=== PATIENT | female | born 1985 | race Caucasian/White ===

== ENCOUNTER → 2016-04-10 | Outpatient (CLI) | payer OTHER ==
[~2016-04-10] MED LIST: ACETAMINOPHEN650 M1 PO; ALBUTEROL17 G1 IH; ALBUTEROL17 GM INH; AMITRIPTYLINE H50 MG PO; AMITRYPTYLINE PO; AMOXICILLIN PO; AMOXICILLIN500 M1 PO; ANAPROX DS550 M1 PO; BACTRIM DS TABL1 TA1 PO; CODEINE; DITROPAN PO; DITROPAN5 MG PO; GABAPENTIN300 M2 PO; GABAPENTIN800 MG PO; KEFLEX250 M1 PO; LEXAPRO PO; LEXAPRO5 MG PO; NAPROSYN500 MG PO; NEURONTIN800 MG PO; NO MEDICATIONS; POLYMYXIN B; PREDNISONE5 M1 PO; RISPERDAL2 MG PO; RISPERIDONE PO; TECFIDERA240 MG PO; TRIMETHOPRIM; TYLENOL; TYSABRI; VICODIN 5/1 TAB 5/50 PO; ZITHROMAX1 G/PKT PO
--- NOTE | ~2016-04-10 | MR31 ---
[facility] A Service of [facility] RADIOLOGY TEXT RESULTS PATIENT: MADELEINEMAY Conchita LOCATION: [facility] : 81 UNIT #: [id number] AGE: [address]: Jacob Menchaca II, MD SEX: F ORDER DR: [id number] [place] [id number] O MR#: [id number] Acc #: [id number] NAME: REECE SALVADOR : 1985 SEX: F STUDY DATE/TIME: 04/10/2016 11:03 UNIT: [facility] ROOM: STUDY DESCRIPTION: MR Cervical WWo Contrast Attending Physician: Jacob Menchaca II., M.D. Referring Physician: Jacob Menchaca II., M.D. Ordering Physician: Jacob Menchaca II., M.D. Primary Care Physician: Su Melgar M.D. MRI CENTER REPORT This report is preliminary unless electronic signature is present. EXAM Cervical spine MRI with and without HISTORY Follow up known multiple sclerosis. No new complaints. On Tysabri. COMMENT MRI of the cervical spine was performed prior to and following intravenous administration of 20 mL of MultiHance. Comparison study is from 07/03/2015. Sagittal alignment is normal. Bone marrow signal intensity is normal. No Chiari I malformation. There is again extensive signal abnormality in the cervical cord consistent with the known multiple sclerosis diagnosis. Involvement is seen essentially at all levels. Allowing for imaging technique differences, the changes appear stable. No pathologic cord enhancement. No imaging evidence for active demyelination. No evidence for cervical canal stenosis. No foraminal compromise. IMPRESSION 1. Redemonstration of extensive signal abnormality in the cord consistent with the known clinical diagnosis of multiple sclerosis. On comparison to the study from 07/03/2015, the appearance is relatively stable. No imaging evidence for active demyelination. No evidence for cervical canal stenosis. Dictated by... Mary Stewart M.D. THIS IS AN ELECTRONICALLY VERIFIED REPORT [facility] A Service [facility] RADIOLOGY TEXT RESULTS PATIENT: REECE SALVADOR R LOCATION: [facility] : 83 UNIT #: [id number] AGE: [address]: Jacob Menchaca II, MD SEX: F ORDER DR: Mary Stewart M.D. at 04/11/2016 7:43 AM SALUD/psc TD: 04/10/2016 22:03 JOB #: [id number] MRI CENTER REPORT
--- NOTE | ~2016-04-10 | MR17 ---
[facility] A Service of [facility] RADIOLOGY TEXT RESULTS PATIENT: MADELEINEMAY Conchita LOCATION: [facility] : 83 UNIT #: [id number] AGE: [address]: Jacob Menchaca II, MD SEX: F ORDER DR: [id number] [address] [address] [id number] O MR#: [id number] Acc #: [id number] NAME: MADELEINE MAY : 1985 SEX: F STUDY DATE/TIME: 04/10/2016 10:32 UNIT: [facility] ROOM: STUDY DESCRIPTION: MR Brain WWo Contrast Attending Physician: Jacob Menchaca II., M.D. Referring Physician: Jacob Menchaca II., M.D. Ordering Physician: Jacob Menchaca II., M.D. Primary Care Physician: Su Melgar M.D. MRI CENTER REPORT This report is preliminary unless electronic signature is present. EXAM MRI of the brain with/without HISTORY Multiple sclerosis followup, history of known multiple sclerosis diagnosed in November 2013, patient on Tysabri now. No new complaints. No history of cancer. COMMENT MRI of the brain was performed prior to and following intravenous administration 20 mL of MultiHance. 1.5T wide-bore imaging system utilized. The comparison study is from 07/03/2015. Redemonstrated is extensive white matter disease consistent with the known diagnosis of multiple sclerosis. White matter disease burden is again severe. It is most confluent in the deep to periventricular white matter. There is no MRI evidence for intracranial hemorrhage. There is no extraaxial fluid collection. Supratentorial disease predominates. There is still some disease within the posterior fossa, best appreciated centered at the left middle cerebellar peduncle. The major intracranial flow voids are maintained. There is some fluid or inflammatory change in the mastoid tips bilaterally, not changed. The paranasal sinuses are clear. There are extensive areas of "black hole formation" most confluent in the deep to periventricular white matter. There is T2 shine-through on the diffusion series. Following contrast administration, there is no pathologic intracranial enhancement. No imaging evidence for active demyelination. No definitely new lesions are seen. There is volume loss again identified for age group, but this is not appreciably changed. IMPRESSION 1. Redemonstration of findings consistent with the severe involvement with the patient's known multiple sclerosis. On comparison to the study from 07/03/2015, the appearance is stable. [facility] A Service of [facility] RADIOLOGY TEXT RESULTS PATIENT: MADELEINEMay LOCATION: [facility] : 83 UNIT #: [id number] AGE: [address]: Jacob Menchaca II, MD SEX: F ORDER DR: No definitely new lesions are seen. There is no imaging evidence for active demyelination. Dictated by... Mary Stewart M.D. THIS IS AN ELECTRONICALLY VERIFIED REPORT Mary Stewart M.D. at 04/11/2016 7:43 AM SALUD/galen TD: 04/10/2016 21:50 JOB #: [id number] MRI CENTER REPORT
== END | disposition home or self-care (01) ==
LOC: SMRI 10:09
DX: G35 Multiple sclerosis (principal); R51 Headache
CPT/HCPCS: 70553; 72156; A9581

== ENCOUNTER → 2016-04-16 | Outpatient (CLI) | payer OTHER | END | disposition home or self-care (01) | LOC: CSSDAY 09:39 | DX: G35 Multiple sclerosis (principal); Z79.899 Other long term (current) drug therapy | CPT/HCPCS: 96413; J2323 ==

== ENCOUNTER 2016-04-28 07:29 | Inpatient (IN) | payer OTHER ==
--- NOTE | ~2016-04-28 | DS ---
Unit #: [id number] #: [id number] Patient: LYNDA TREVIZO [id number] [address] [place], [place] [address] [id number] I MR#: [id number] NAME: LYNDA TREVIZO ROOM: 242 Age: 30 Sex: F Admission Date: 04/28/2016 : 1985 Discharge Date: 04/29/2016 Attending Physician: Lissette Sullivan M.D. Primary Care Physician: Su Melgar M.D. DISCHARGE SUMMARY FINAL DIAGNOSES 1. Multiple sclerosis symptom exacerbation. 2. Urinary tract infection. 3. History of depression. 4. Tobacco abuse. DISCHARGE MEDICATIONS Bactrim DS one tablet p.o. b.i.d., and continue home medications. HOSPITAL COURSE Ms. Lynda Trevizo is a 30-year-old female, who has a history of MS. She was doing well about 2 days ago prior to coming to the hospital when she started having dysuria and polyuria. She knew that she was getting a bladder infection, but she did not follow up with primary care provider, and the third day, on Thursday morning, she could not ambulate. This is what has happened to her in the past also. She gets the exacerbation of her multiple sclerosis symptoms and she knew that she had to come to the hospital. She came to the hospital, was given Rocephin, and right away she started to move her legs. Today, she is doing much better at this time and according to her, she is able to ambulate and would like to go home as she has a to attend. I do not have the final culture results. The patient does have urine culture positive for E coli, more than 100,000 colonies, but sensitivity is not back. She has received 2 days of Rocephin. I am going to give her a prescription for Bactrim and she needs to call Dr. Melgar's office to get the urine culture report and make sure Bactrim is sensitive. She does verbalize understanding of above. DIAGNOSTIC STUDIES LABORATORY RESULTS: Blood cultures are negative. Sodium 135, potassium 4.2, chloride 105, BUN 10, and creatinine 0.7. WBC is 11.8, hemoglobin 11.9, hematocrit 37.0 and platelet count of 167. On admission, the patient's WBC count was 19.5. PHYSICAL EXAMINATION VITAL SIGNS: Blood pressure 108/59, respiratory rate 18, pulse is 73, temperature 97.8. CHEST: Fair air entry. No additional sounds. CVS: Regular rhythm. ABDOMEN: Soft. DISCHARGE INSTRUCTIONS The patient is being discharged home in stable condition. Follow up with Dr. Melgar in [address] Melgar's office in 24 hours to get the final Unit #: [id number] #: [id number] Patient: TREVIZO urine culture report. Dictated by... Noah Murphy/lauren TD: 04/30/2016 06:28 JOB #: [id number] DISCHARGE SUMMARY Page 1 of 1 X Lissette Sullivan MD X DISCHARGE SUMMARY
--- NOTE | ~2016-04-28 | HP ---
Unit #: [id number] #: [id number] Patient: REECE SALVADOR [id number] [address] [place], [place] [address] [id number] I MR#: [id number] NAME: REECE SALVADOR. ROOM: 242 Age: 30 Sex: F Admission Date: 04/28/2016 : 1985 Attending Physician: Lissette Sullivan M.D. Primary Care Physician: Su Melgar M.D. HISTORY AND PHYSICAL CHIEF COMPLAINT Unable to move her legs and dysuria. HISTORY OF PRESENT ILLNESS A 30-year-old female with past history of multiple sclerosis, was doing well until two days ago when started having some dysuria and polyuria and she thought she could have UTI but she did not go to a primary care provider. This morning she woke up and she could not move her lower extremities. The patient has history of multiple sclerosis and she follows up with Dr. Menchaca and is on infusion therapy once a month. She knew at that time that most likely this MS exacerbation is secondary to UTI. She came to ER and patient was found to have urinary tract infection with urine showing 4+ bacteria. The patient had the same kind of symptoms in 2014 and was treated with antibiotics. She does not complain of nausea and vomiting. She does not complain of chest pain or abdominal pain. According to her, she is already feeling better and she is able to move her legs somewhat. PAST MEDICAL HISTORY 1. Multiple sclerosis. 2. Depression. 3. UTI in the past. HOME MEDICATIONS 1. Ditropan 5 mg three times a day. 2. Risperdal 2 mg daily. 3. Amitriptyline 50 mg at bedtime. 4. Neurontin 800 mg three times a day. 5. Lexapro 10 mg daily. 6. IV Tecfidera infusion as per Dr. Menchaca. PAST SURGICAL HISTORY History of x2. SOCIAL HISTORY She is a smoker, smokes one pack per day. No history of alcohol abuse or drug abuse. ALLERGIES No known drug allergies. FAMILY HISTORY Unremarkable. Unit #: [id number] #: [id number] Patient: REECE SALVADOR REVIEW OF SYSTEMS As per history of presenting illness. A 12-point review of systems was done. PHYSICAL EXAMINATION GENERAL: The patient is lying comfortably in bed in no respiratory distress. VITAL SIGNS: Blood pressure is 109/68, respiratory rate 27, pulse 93, temperature 98.7, oxygen saturation is 99%. HEENT: Head is normocephalic. Eye movements are normal. NECK: Supple. CHEST: Fair air entry. No additional sounds. CARDIOVASCULAR: S1, S2 positive. Regular rhythm. ABDOMEN: Soft and benign. EXTREMITIES: Negative edema. Pulses are palpable. Toes are upgoing bilaterally. Normal bulk and tone. CENTRAL NERVOUS SYSTEM: Awake, alert, oriented x3. No focal neurological deficit. DIAGNOSTIC STUDIES LABORATORY: WBC 19.5, hemoglobin 13.4, hematocrit 41.3, platelet count 193,000. Sodium 138, potassium 4, chloride 104, BUN 12, creatinine 0.8. Urinalysis again shows 4+ bacteria. Troponin is less than 0.05. ASSESSMENT The patient is being admitted to med/surg unit with: 1. Urinary tract infection. 2. Exacerbation of multiple sclerosis symptoms. 3. History of depression. 4. Tobacco abuse. PLAN Admit to med/surg. IV Rocephin is being started. Urine culture is being done. Normal saline at 75 mL an hour is being started. Home medications have been adjusted. Plan of care has been discussed with patient. She does verbalize understanding. Dictated by Noah Murphy TD: 04/28/2016 16:45 JOB #: [id number] HISTORY AND PHYSICAL X Lissette Sullivan MD X HISTORY AND PHYSICAL
--- NOTE | ~2016-04-28 | CR72 ---
[facility] A Service of [facility] RADIOLOGY TEXT RESULTS PATIENT: REECE SALVADOR LOCATION: [place] [address] : [birth year] UNIT #: [id number] AGE: [address]: Lissette Sullivan MD SEX: F ORDER DR: [id number] [facility] [address] [facility]. [place], [place] [address] [id number] I MR#: [id number] Acc #: [id number] NAME: REECE SALVADOR. : 1985 SEX: F STUDY DATE/TIME: 04/28/2016 6:52 UNIT: [facility] ROOM: 34447 STUDY DESCRIPTION: CR Chest Single View Portable Attending Physician: Lissette Sullivan M.D. Ordering Physician: Kendrick Ernst M.D. Primary Care Physician: Su Melgar M.D. MEDICAL IMAGING REPORT This report is preliminary unless electronic signature is present EXAM Frontal chest 04/28/2016 INDICATION 30-year-old female with the history of weakness, shortness of air that began this morning. Short of breath, tobacco abuse. TECHNIQUE AND COMPARISON Frontal chest compared with 10/06/2014. FINDINGS Cardiac silhouette is within normal limits for technique. The vascularity is normal. Lungs are clear. No effusion or pneumothorax. IMPRESSION 1. Low-volume image, otherwise, negative frontal chest. No change. Dictated by... Casey Hernandez M.D. THIS IS AN ELECTRONICALLY VERIFIED REPORT Casey Hernandez M.D. at 04/28/2016 2:31 PM MATTHEW/kristopher TD: 04/28/2016 12:48 JOB #: [id number] MEDICAL IMAGING REPORT COPY
--- NOTE | ~2016-04-28 | EKG ---
PATIENT: MADELEINE MAY UNIT #: [id number] Ventricular Rate: 93 BPM Atrial Rate: 93 BPM P-R Interval: 160 ms QRS Duration: 100 ms Q-T Interval: 338 ms QTC Calculation(Bezet): 420 ms P [place]: 54 degrees Calculated R [place]: 31 degrees Calculated T [place]: 47 degrees Diagnosis Line: Normal sinus rhythm Diagnosis Line: Normal ECG Diagnosis Line: No previous ECGs available Diagnosis Line: Confirmed by TON IVORY MD ([id number]) on Diagnosis Line: 04/29/2016 2:21:10 PM INTERPRETING MD: CACHORRO SON
--- NOTE | ~2016-04-28 | BMI ---
[facility] Nutrition Therapy DATE: 04/29/16 Patient: REECE SALVADOR Physician: KIP Address: [address] [place] [address] Room/Bed: [address] [place] [address], Zip: [place] [address] Admit Date: 04/28/16 Date of : [birth year] Height: 5 8 Weight: 275 124.73 HIGH BMI NOTE: DX: 30 y/o female admitted with decreased range of motion ANTHROPOMETRICS: Ht: 68", Wt: 124.7 kg, BMI: 41 (Stage III obese) DIET: Healthy heart INTERVENTION: Restricted diet, meds/fluids per MD RECOMMENDATIONS: Continue healthy heart diet to promote a gradual weight loss towards a healthy BMI range. Respectfully, Caterina Sher RD, LD Food and Nutritional Services [facility] cc: client file
[2016-04-28 07:03] LABS: POC - CKMB <1.0 ng/mL (0.0-7.9); POC - TROPONIN <0.05 ng/mL (<=0.05)
[~2016-04-28 07:29] MED LIST changes: -AMITRYPTYLINE PO; -DITROPAN5 MG PO; -LEXAPRO5 MG PO; -NEURONTIN800 MG PO; -TYSABRI
[2016-04-28 07:36] LABS: URINE APPEARANCE CLOUDY; URINE BILIRUBIN NEG (NEG); URINE BLOOD NEG (NEG); URINE COLOR DK YELLOW; URINE GLUCOSE NEG (NEG); URINE KETONE TRACE (NEG); URINE LEUKOCYTE ESTERASE 3+ (NEG); URINE NITRATE POS (NEG); URINE PH 6.5 (5-8); URINE PROTEIN TRACE (NEG); URINE SPECIFIC GRAVITY 1.033 (1.003-1.035)
[2016-04-28 07:38] LABS: CULTURE INDICATED? YES; URINE BACTERIA AUWI 4+ (NEGATIVE); URINE SQUAMOUS EPITHELIAL CELL NONE SEEN /[HPF]; UWBCS1 AUWI INNUM (0-5)
[2016-04-28 07:44] LABS: BASOPHIL# 0.1 X10e3 (0-0.3); BASOPHIL% 0.8 % (0-2.5); EOSINOPHIL# 2.3 X10e3 (0-0.7); EOSINOPHIL% 11.7 % (0.0-7.0); HEMATOCRIT 41.3 % (35.0-45.0); HEMOGLOBIN 13.4 gm/dL (12.0-16.0); LYMPHOCYTE# 2.6 X10e3 (1.0-3.5); LYMPHOCYTE% 13.3 % (17.0-45.0); MEAN CELL VOLUME 89.2 FL (83-96); MEAN CORPUSCULAR HGB CONC 32.5 g/dL (30-36); MEAN PLATELET VOLUME 8.3 FL (6.5-11.5); MONOCYTE# 1.1 X10e3 (0-1.0); MONOCYTE% 5.8 % (3.0-12.0); NEUTROPHIL# 13.3 X10e3 (1.5-7.1); NEUTROPHIL% 68.4 % (40-75); PLATELET COUNT 193 X10e3 (140-420); RED BLOOD COUNT 4.63 X10e (3.90-5.30); RED CELL DISTRIBUTION WIDTH 15.7 % (11.0-15.5); WHITE BLOOD COUNT 19.5 X10e3 (4.0-10.5)
[2016-04-28 07:45] LABS: DIFF IND YES
[2016-04-28 07:47] LABS: U HYALINE CASTS AUWI 0-2 /[LPF]; URINE MUCUS PRESENT; URINE SOURCE CATH
[2016-04-28 07:58] LABS: ALBUMIN SERUM 3.7 g/dL (3.5-5.0); ALKALINE PHOSPHATASE 124 U/L (32-92); ALT (SGPT) 14 U/L (10-40); AST (SGOT) 16 U/L (10-42); BILIRUBIN, DIRECT 0.1 mg/dL (0.0-0.2); BILIRUBIN,INDIRECT 0.4 mg/dL (0.0-0.9); BILIRUBIN,TOTAL 0.5 mg/dL (0.2-2.0); BLOOD UREA NITROGEN 12 mg/dL (9-23); CALCIUM SERUM 8.8 mg/dL (8.4-10.2); CARBON DIOXIDE 26 mmol/L (22-31); CHLORIDE 104 mmol/L (100-111); CREATININE SERUM 0.8 mg/dL (0.6-1.4); GLOM FILT RATE Estimated ABOVE60 mL/min (>60); GLUCOSE FASTING 92 mg/dL (70-110); PROTEIN TOTAL SERUM 7.2 g/dL (6.0-8.3); SODIUM 138 mmol/L (135-145)
[2016-04-28 08:09] LABS: ANISOCYTOSIS SL; NUCLEATED RED BLOOD CELL 1 /100 (0); PLATELET ESTIMATE NORMAL (NORMAL); RBC NORMAL YES
[2016-04-29 06:19] LABS: BASOPHIL# 0.1 X10e3 (0-0.3); BASOPHIL% 1.1 % (0-2.5); EOSINOPHIL# 1.5 X10e3 (0-0.7); EOSINOPHIL% 12.5 % (0.0-7.0); HEMOGLOBIN 11.9 gm/dL (12.0-16.0); LYMPHOCYTE# 3.2 X10e3 (1.0-3.5); LYMPHOCYTE% 26.9 % (17.0-45.0); MEAN CELL VOLUME 88.7 FL (83-96); MEAN CORPUSCULAR HEMOGLOBIN 28.6 PG (28-34); MEAN CORPUSCULAR HGB CONC 32.3 g/dL (30-36); MEAN PLATELET VOLUME 7.9 FL (6.5-11.5); MONOCYTE# 0.8 X10e3 (0-1.0); MONOCYTE% 7.1 % (3.0-12.0); NEUTROPHIL# 6.2 X10e3 (1.5-7.1); NEUTROPHIL% 52.4 % (40-75); PLATELET COUNT 166 X10e3 (140-420); RED BLOOD COUNT 4.17 X10e (3.90-5.30); RED CELL DISTRIBUTION WIDTH 15.9 % (11.0-15.5); WHITE BLOOD COUNT 11.8 X10e3 (4.0-10.5)
[2016-04-29 06:20] LABS: DIFF IND NO
[2016-04-29 06:44] LABS: BLOOD UREA NITROGEN 10 mg/dL (9-23); BUN/CREATININE RATIO 14.28; CALCIUM SERUM 8.3 mg/dL (8.4-10.2); CARBON DIOXIDE 24 mmol/L (22-31); CHLORIDE 105 mmol/L (100-111); CREATININE SERUM 0.7 mg/dL (0.6-1.4); GLOM FILT RATE Estimated ABOVE60 mL/min (>60); GLUCOSE FASTING 89 mg/dL (70-110); POTASSIUM 4.2 mmol/L (3.5-5.1); SODIUM 135 mmol/L (135-145)
[2016-05-14] MEDS ORDERED: BACTRIM DS TABL1 TA1 PO (14:04)
[2016-07-04] MEDS ORDERED: AMITRYPTYLINE PO (11:04)
[2016-07-04] MEDS ORDERED: RISPERDAL2 MG PO (11:04)
[2016-07-04] MEDS ORDERED: DITROPAN5 MG PO (11:04)
[2016-07-04] MEDS ORDERED: LEXAPRO5 MG PO (11:05)
[2016-07-04] MEDS ORDERED: NEURONTIN800 MG PO (11:05)
== END 2016-04-29 14:56 | disposition home or self-care (01) | DRG 690 ==
LOC: CED 07:29 → CEDOF 08:05 → C2A 13:15
PROVIDERS: Emergency Medicine; Physician Assistant Medical
DX: N39.0 Urinary tract infection, site not specified (principal); G35 Multiple sclerosis; F32.9 Major depressive disorder, single episode, unspecified; B96.20 Unspecified Escherichia coli [E. coli] as the cause of diseases classified elsewhere; F17.210 Nicotine dependence, cigarettes, uncomplicated
CPT/HCPCS: 36415; 51701; 71010; 80048; 80076; 81003; 82553; 82947; 84484; 84703; 85025; 87040; 87086; 87088; 87186; 93005; 99285; J0696; J1650

== ENCOUNTER → 2016-05-14 | Outpatient (CLI) | payer OTHER ==
[~2016-05-14] MED LIST changes: +AMITRYPTYLINE PO; +DITROPAN5 MG PO; +LEXAPRO5 MG PO; +NEURONTIN800 MG PO; +TYSABRI
== END | disposition home or self-care (01) ==
LOC: CSSDAY 10:04
DX: G35 Multiple sclerosis (principal); Z79.899 Other long term (current) drug therapy
CPT/HCPCS: 96413; J2323

== ENCOUNTER → 2016-07-04 | Outpatient (CLI) | payer OTHER | END | disposition home or self-care (01) | LOC: CSSDAY 10:00 | DX: G35 Multiple sclerosis (principal); Z79.899 Other long term (current) drug therapy | CPT/HCPCS: 96413; J2323 ==

== ENCOUNTER 2016-07-19 01:23 | Emergency (ER) | payer OTHER ==
--- NOTE | ~2016-07-19 | CR127 ---
[facility] A Service of [facility] RADIOLOGY TEXT RESULTS PATIENT: REECE SALVADOR LOCATION: SED : 81 UNIT #: [id number] AGE: [address]: Kendrick Ernst MD SEX: F ORDER DR: [id number] [place] [id number] E MR#: [id number] Acc #: [id number] NAME: REECE SALVADOR. : 1985 SEX: F STUDY DATE/TIME: 07/19/2016 2:06 UNIT: SED ROOM: STUDY DESCRIPTION: CR Foot Complete Min 3 View Rt Attending Physician: Kendrick Ernst M.D. Ordering Physician: Kendrick Ernst M.D. Primary Care Physician: Su Melgar M.D. MEDICAL IMAGING REPORT This report is preliminary unless electronic signature is present. EXAM Right foot INDICATION Right foot pain after rolling a wheelchair over foot. Injury happened tonight. FINDINGS The tarsal, metatarsal, and phalangeal elements are all anatomically normal in position and alignment. There are no articular defects. No fractures or radiopaque foreign bodies in the soft tissues are apparent. IMPRESSION Normal foot. Dictated by... Prashant Goodman M.D. THIS IS AN ELECTRONICALLY VERIFIED REPORT Prashant Goodman M.D. at 07/19/2016 1:31 PM MYNOR/riya TD: 07/19/2016 09:37 JOB #: [id number] MEDICAL IMAGING REPORT Page 1 of 1
[~2016-07-19 01:23] MED LIST changes: -TYSABRI
[2016-07-19] MEDS ORDERED: TYSABRI (01:36)
== END 2016-07-19 03:00 | disposition home or self-care (01) ==
LOC: SED 01:23
DX: S96.211A Strain of intrinsic muscle and tendon at ankle and foot level, right foot, initial encounter (principal); X58.XXXA Exposure to other specified factors, initial encounter; Y92.009 Unspecified place in unspecified non-institutional (private) residence as the place of occurrence of the external cause
CPT/HCPCS: 29515; 73630; 99283

== ENCOUNTER → 2016-07-31 | Outpatient (CLI) | payer OTHER ==
[~2016-07-31] MED LIST changes: +TYSABRI
== END | disposition home or self-care (01) ==
LOC: CSSDAY 09:01
DX: G35 Multiple sclerosis (principal); Z79.899 Other long term (current) drug therapy
CPT/HCPCS: 96413; J2323

== ENCOUNTER → 2016-09-08 | Outpatient (CLI) | payer OTHER | END | disposition home or self-care (01) | LOC: CSSDAY 10:14 | DX: G35 Multiple sclerosis (principal) | CPT/HCPCS: 96413; J2323 ==